=== PATIENT | female | born 1990 | race Caucasian/White ===

== ENCOUNTER 2019-02-24 21:30 | Inpatient (IN) | payer OTHER ==
[2019-02-24] MEDS ORDERED: BUTORPHANOL TARTRATE 1 MG/ML VIAL IVPUSH ONE (22:54)
[2019-02-24] MEDS ORDERED: PROMETHAZINE HCL 25 MG/1 ML VIAL IVPUSH ONE (22:54)
[2019-02-24] MEDS ORDERED: DEXTROSE 5%-LACTATED RINGERS 1,000 ML IV SCH (23:00)
--- NOTE | 2019-02-24 23:00 | HP ---
Past Medical History - Primary Care Physician PCP:: Frank Rossi - Admission Chief Complaint: 38 weeks, labor History of Present Illness: 28 yo f g g5 p 3013, , edc 03/05/2019 , 38 weeks , c/o contraction, no rom, cx 3 cm 80 vx -2 mi, fhr cat 1, regular contraction, GBS negative History Source: Patient Limitations to Obtaining History: Language Barrier - Past Medical History ...: 6 ...Para: 3 ...Term: 3 ...Spon : 1 ... Weeks Gestation by Dates: 38.3 ...EDC by Sono: 03/05/19 - Past Surgical History Hx Myomectomy: No Hx Transabdominal Cerclage: No - Smoking History Have you smoked in the past 12 months: No - Alcohol/Substance Use Hx Alcohol Use: No History of Substance Use: reports: None - Social History Usual Living Arrangement: Yes: With Spouse History of Recent Travel: No Review of Systems - Review of Systems Constitutional: reports: No Symptoms Eyes: reports: No Symptoms HENT: reports: No Symptoms Neck: reports: No Symptoms Cardiovascular: reports: No Symptoms Respiratory: reports: No Symptoms Gastrointestinal: reports: No Symptoms Genitourinary: reports: No Symptoms Breasts: reports: No Symptoms Reported Musculoskeletal: reports: No Symptoms Integumentary: reports: No Symptoms Neurological: reports: No Symptoms Endocrine: reports: No Symptoms Hematology/Lymphatic: reports: No Symptoms Psychiatric: reports: No Symptoms Physical Exam - Maternity Constitutional: Yes: Well Nourished, No Distress, Calm Eyes: Yes: WNL, Conjunctiva Clear, EOM Intact HENT: Yes: WNL, Atraumatic, Normocephalic Neck: Yes: WNL, Supple, Trachea Midline Cardiovascular: Yes: WNL, Regular Rate and Rhythm Breast(s): Yes: WNL - Abdominal Exam/OB Fundal Height: 40 Number of Fetuses: Single Presentation: Vertex Contractions: Yes Regularity: Regular Intensity: Mod/Strong Monitor Mode: External Heart Rate Location: [facility] Category: I Accelerations: Uniform Decelerations: None - Vaginal Exam/OB Vaginal Bleediing: No Speculum Exam: No Dilatation (cm): 3 cm Effacement (%): 80 Amniotic Membrane Status: Intact Presentation: Vertex/Position Station: -3 - Physical Exam Musculoskeletal: Yes: WNL Extremities: Yes: WNL Edema: Yes Edema: LLE: Trace, RLE: Trace Deep Tendon Reflex Grade: Normal +2 ...Motor Strength: WNL Psychiatric: Yes: WNL Hemorrhage Risk Assessment - Risk Factors Medium Risk Factors: Yes: Greater than 4 previous births Risk Score: 1 Risk Level: Medium Risk Problem List - Problems (1) with 38 completed weeks gestation Code(s): Z3A.38 - 38 WEEKS GESTATION OF Assessment/Plan admit FHM pain management anticipate vaginal deliver
[2019-02-25 00:23] LABS: BASO % 0.3 % (0-2.0); HEMATOCRIT 31.4 % (32.4-45.2); HEMOGLOBIN 9.9 GM/dL (10.7-15.3); MCH 24.3 pg (25.7-33.7); MCHC 31.4 g/dl (32.0-36.0); MEAN CELL VOLUME 77.2 fl (80-96); MEAN PLT VOLUME 8.9 fl (7.5-11.1); MONO % 7.4 % (3.8-10.2); NEUT % 71.3 % (42.8-82.8); PLATELET COUNT 251 K/MM3 (134-434); RBC 4.07 M/mm3 (3.60-5.2); RDW 16.6 % (11.6-15.6); WHITE BLOOD COUNT 8.7 K/mm3 (4.0-10.0)
[2019-02-25 00:37] LABS: INR 0.93 (0.83-1.09)
[2019-02-25 00:40] LABS: ACTIVATED PTT 29.5 SECONDS (25.2-36.5)
[2019-02-25 00:42] LABS: CALCIUM 8.7 mg/dL (8.5-10.1); CREATININE 0.4 mg/dL (0.55-1.3); POTASSIUM 4.2 mmol/L (3.5-5.1)
[2019-02-25] MEDS ORDERED: METHYLERGONOVINE MALEATE 0.2 MG/1 ML AMP IM PRN (04:53)
[2019-02-25] MEDS ORDERED: BISACODYL 10 MG SUPP.RECT RC PRN (04:53)
[2019-02-25] MEDS ORDERED: BENZOCAINE 20% 57 GM BOTTLE TP PRN (04:53)
[2019-02-25] MEDS ORDERED: BENZOCAINE 28 GM HEMORRHOIDAL OINTMENT TP PRN (04:53)
[2019-02-25] MEDS ORDERED: WITCH HAZEL 50% (TUCKS) 40 PAD/JAR PAD TP PRN (04:53)
--- NOTE | 2019-02-25 04:59 | PN ---
Delivery - Delivery Vaginal Delivery: Spontaneous Episiotomy/Laceration: 1st degree (cx full , head delivered EMANUEL, no cord , ant. , Post. shoulder delivered with no difficulty , placenta complete ,spontaneous , 1 cm vaginal mucosa tear repared with one suture of 2.0 chromic , ebl 300 cc , baby held by mother, had skin to skin bonding, breast fed in the delivery room.) Delivery, Single - Feeding Plan Initial Plan: Elected not to breastfeed exclusively throughout hospitalization
[2019-02-25] MEDS ORDERED: OXYTOCIN 20 UNITS in 0.9% NS 20 UNIT/1,000 ML INFUS.BAG IV SCH (05:00)
[2019-02-25] MEDS ORDERED: D5W-LR W/ 20 UNITS OXYTOCIN 20 UNIT/1,000 ML INFUS.BAG IV SCH (05:00)
--- NOTE | 2019-02-25 05:02 | PN ---
Progress Note (short form) - Note Progress Note: 330 am srom, mec. AF , fhr cat 1, regular contraction Problem List - Problems (1) with 38 completed weeks gestation Code(s): Z3A.38 - 38 WEEKS GESTATION OF
[2019-02-25] MEDS ORDERED: DIPHTH,PERTUSS(ACELL),TET 0.5 ML DISP.SYRIN IM ONE (06:37)
[2019-02-25] MEDS: IBUPROFEN 600 MG TABLET (FP) PO PRN ×2 (08:36→22:26)
[2019-02-25] MEDS: ACETAMINOPHEN 325 MG TABLET (FP) PO PRN ×2 (08:36→22:26)
[2019-02-25] MEDS: FERROUS SO4 325 MG TABLET (FP) PO SCH ×2 (09:30→22:15)
[2019-02-25] MEDS: PRENATAL VITAMINS W/ FOLIC ACID TABLET (FP) PO SCH (09:30)
[2019-02-25] MEDS ORDERED: FLU VACC QS2019-20(6MOS UP)/PF 60 MCG/0.5 ML SYRINGE IM ONE (10:00)
[2019-02-26 07:49] LABS: BASO % 0.5 % (0-2.0); EOS % 1.4 % (0-4.5); HEMATOCRIT 30.3 % (32.4-45.2); HEMOGLOBIN 9.6 GM/dL (10.7-15.3); LYMPH % 25.4 % (8-40); MCH 24.6 pg (25.7-33.7); MCHC 31.8 g/dl (32.0-36.0); MEAN CELL VOLUME 77.4 fl (80-96); MEAN PLT VOLUME 8.8 fl (7.5-11.1); MONO % 6.3 % (3.8-10.2); NEUT % 66.4 % (42.8-82.8); PLATELET COUNT 254 K/MM3 (134-434); RBC 3.92 M/mm3 (3.60-5.2); RDW 17.4 % (11.6-15.6); WHITE BLOOD COUNT 9.1 K/mm3 (4.0-10.0)
[2019-02-26] MEDS: FERROUS SO4 325 MG TABLET (FP) PO SCH ×2 (09:26→21:26)
[2019-02-26] MEDS: PRENATAL VITAMINS W/ FOLIC ACID TABLET (FP) PO SCH (09:26)
--- NOTE | 2019-02-26 09:45 | PN ---
Post Progress Note - Subjective Subjective: Patient without acute complaints. Reports tolerating oral intake without nausea or vomiting. Ambulating without dizziness. Denies fevers or chills. Pain well controlled with oral pain medication. Pumping/breast feeding without issue. Passing flatus, no BM. Post Day: 2 Type of Delivery: Vital Signs: Vital Signs Temperature 98.1 F 02/26/19 06:00 Pulse Rate 64 02/26/19 06:00 Respiratory Rate 18 02/26/19 06:00 Blood Pressure 104/65 02/26/19 06:00 O2 Sat by Pulse Oximetry (%) Breast Exam: Yes: Soft Uterus: Yes: Fundus Firm, Fundus below umbilicus, Non-tender Abdomen/GI: Yes: Abdomen soft, Passing flatus, Tolerating PO Lochia: Yes: Rubra Lochia, amount: Small Extremities: Yes: Calves non-tender Perineum: Yes: Intact Activity: Ambulating - Labs Labs: CBC WBC 9.1 K/mm3 (4.0-10.0) 02/26/19 07:24 RBC 3.92 M/mm3 (3.60-5.2) 02/26/19 07:24 Hgb 9.6 GM/dL (10.7-15.3) L 02/26/19 07:24 Hct 30.3 % (32.4-45.2) L 02/26/19 07:24 MCV 77.4 fl (80-96) L 02/26/19 07:24 MCH 24.6 pg (25.7-33.7) L 02/26/19 07:24 MCHC 31.8 g/dl (32.0-36.0) L 02/26/19 07:24 RDW 17.4 % (11.6-15.6) H 02/26/19 07:24 Plt Count 254 K/MM3 (134-434) 02/26/19 07:24 MPV 8.8 fl (7.5-11.1) 02/26/19 07:24 Absolute Neuts (auto) 6.0 K/mm3 (1.5-8.0) 02/26/19 07:24 Neutrophils % 66.4 % (42.8-82.8) 02/26/19 07:24 Lymphocytes % 25.4 % (8-40) D 02/26/19 07:24 Monocytes % 6.3 % (3.8-10.2) 02/26/19 07:24 Eosinophils % 1.4 % (0-4.5) 02/26/19 07:24 Basophils % 0.5 % (0-2.0) 02/26/19 07:24 Nucleated RBC % 0 % (0-0) 02/26/19 07:24 Assessment/Plan 28yo s/p , doing well stable, afebrile. Asymptomatic for anemia. care instructions reviewed. Continue routine care. Ambulation encouraged Discharge instruction reviewed.
--- NOTE | 2019-02-26 09:47 | DS ---
Physical Exam-[employer] Vital Signs: Vital Signs Temperature 98.1 F 02/26/19 06:00 Pulse Rate 64 02/26/19 06:00 Respiratory Rate 18 02/26/19 06:00 Blood Pressure 104/65 02/26/19 06:00 O2 Sat by Pulse Oximetry (%) Constitutional: Yes: Well Nourished, No Distress, Calm Eyes: Yes: WNL, Conjunctiva Clear HENT: Yes: WNL, Atraumatic, Normocephalic Neck: Yes: WNL, Supple, Trachea Midline Cardiovascular: Yes: WNL, Regular Rate and Rhythm Respiratory: Yes: WNL, Regular, CTA Bilaterally Gastrointestinal: Yes: WNL, Normal Bowel Sounds, Soft ...Rectal Exam: Yes: Deferred Renal/: Yes: WNL Pelvis: Yes: WNL Internal Exam Deferred: Yes ....Post : Yes: Uterus firm, Uterus non-tender, Slight lochia rubra Breast(s): Yes: WNL Musculoskeletal: Yes: WNL Extremities: Yes: WNL Edema: Yes Edema: LLE: Trace, RLE: Trace Integumentary: Yes: WNL Neurological: Yes: WNL, Alert, Oriented ...Motor Strength: WNL Psychiatric: Yes: WNL, Alert, Oriented Labs: CBC, BMP 02/26/19 07:24 02/25/19 00:00 Delivery - Delivery Vaginal Delivery: No Problems, Spontaneous Type of Anesthesia: Local Episiotomy/Laceration: 1st degree EBL (cc): 300 Delivery, Single - Stages of Labor Date 1st Stage Initiatied: 02/24/19 Time 1st Stage Initiated: 14:00 Date 2nd Stage Initiated: 02/25/19 Time 2nd Stage Initiated: 04:20 Date of Delivery: 02/25/19 Time of Delivery: 04:35 Time Placenta Delivered: 04:40 Placenta: Yes: Spontaneous, Normal Configuration - Condition of Phlebotomist Lab Assistant/Photography Editor Present: No Infant Gender: Female Weight: 3.515 kg Position: Left, OA Total Hours ROM (Hrs/Mins): 1H10M - 1 Minute Total Score: 9 5 Minutes Total Score: 9 - Feeding Plan Initial Plan: Elected not to breastfeed exclusively throughout hospitalization Benefits of Exclusively reinforced: Yes Discharge Summary Problems reviewed: Yes Reason For Visit: LABOR Current Active Problems with 38 completed weeks gestation (Acute) Procedures: Principal: DEEPAK Hospital Course: Normal recovery Plan of Treatment: care Condition: Good - Instructions Diet, Activity, Other Instructions: Physical activity Resume your normal everyday activity as tolerated no heavy lifting or exercise until seen by your surgeon. You may walk unlimited juan alberto of and climb stairs. You may resume driving the car when you feel safe and comfortable behind the wheel. No sexual activity as instructed. Wound care If you have a bandage, leave it on, and keep dry for 48-72 hours. After that time discard the outer bandage. If they are tapes on the skin under the out of bandage leave them in place. They will peel off in the next 7 to 10 days. Do Not Peel them off. You may shower the day after surgery. If there are tapes present on the skin, you may shower over them. Diet There are no dietary restrictions. Eat healthy, high-fiber foods. Drink 6 to 8 glasses of liquid each day. This will assist in keeping your bowels are regular. Pain management You may take Tylenol or acetaminophen or Ibuprofen (for example, Motrin, Advil etc.) from my pain prescription medication is ordered should be taken as prescribed for moderate to severe pain. Call MD for any of the following: Severe pain not relieved by medication Fever of 101 or higher Excessive bleeding or drainage on dressing Inability to urinate Referrals: Kris Webb MD [Staff Physician] - Disposition: HOME - Home Medications Comprehensive Discharge Medication List: Ambulatory Orders Vitamins (Sjr) - 1 tab PO DAILY 02/25/19 Prescription Drug Monitoring Program (I-STOP) results: I-STOP not reviewed
[2019-02-26] MEDS ORDERED: FLU VACCINE QUAD 60 MCG/0.5 ML (MDV 19-20) IM ONE (10:00)
[2019-02-26] MEDS: IBUPROFEN 600 MG TABLET (FP) PO PRN (19:21)
[2019-02-26] MEDS: ACETAMINOPHEN 325 MG TABLET (FP) PO PRN (19:21)
[2019-02-26] MEDS ORDERED: SENNOSIDES/DOCUSATE COMBO (SENNA PLUS) TABLET (UD) PO PRN (22:00)
[2019-02-27] MEDS: FERROUS SO4 325 MG TABLET (FP) PO SCH (09:20)
[2019-02-27] MEDS: PRENATAL VITAMINS W/ FOLIC ACID TABLET (FP) PO SCH (09:20)
[2019-02-27 09:48] VITALS: BP 113/64; PULSE 81; TEMP 98.3
[2019-02-27] MEDS ORDERED: DIPHTH,PERTUSS(ACELL),TET 0.5 ML DISP.SYRIN IM ONE (10:00)
== END 2019-02-27 12:55 | disposition home or self-care (01) | DRG 560 ==
LOC: JDEL 21:30 → JLDR 22:30 → J3N 02-25 06:23 → J3W 02-26 11:00
PROVIDERS: ADMIT Obstetrics & Gynecology; ATTEND Obstetrics & Gynecology
PROC: 10E0XZZ Delivery of Products of Conception, External Approach (ICD-10-PCS; principal; 2019-02-25)
PROC: 0HQ9XZZ Repair Perineum Skin, External Approach (ICD-10-PCS; 2019-02-25)
DX: O99.02 Anemia complicating childbirth (principal); O70.0 First degree perineal laceration during delivery; Z3A.38 38 weeks gestation of pregnancy; Z37.0 Single live birth
CPT/HCPCS: 36415; 36600; 59409; 80048; 82803; 85025; 85610; 85730; 86593; 86850; 86900; 86901; 87389; 90686; 90715